=== PATIENT | female | born 1980 | race Caucasian/White ===

== ENCOUNTER 2016-09-13 12:11 | Emergency (ER) | payer BC ==
[2016-09-13] MEDS ORDERED: NS 0.9% 1000 ML* 1,000 ML IV ONE (12:31)
[2016-09-13 13:32] LABS: Hematocrit 36 % (35-47); Hemoglobin 11.7 g/dl (12.0-16.0); Mean Corpuscular HGB Conc 32 g/dl (31-36); Mean Corpuscular Hemoglobin 25 pg (27-31); Mean Corpuscular Volume 78 fL (80-97); Mean Platelet Volume 10 um3 (7.4-10.4); Red Blood Count 4.63 10^6/ul (4.0-5.4); Red Cell Distribution Width 15 % (10.5-15)
[2016-09-13 13:58] LABS: Albumin 3.3 g/dL (3.2-5.2); BUN/Creatinine Ratio 12.3 (8-20); Calcium 8.5 mg/dL (8.6-10.3); EGFR African American 153.5 (>60); EGFR Non-African American 119.3 (>60); Globulin 3.1 g/dL (2-4); Potassium 3.7 mmol/L (3.5-5.0); Total Bilirubin 0.2 mg/dL (0.2-1.0); Total Protein 6.4 g/dL (6.4-8.9)
--- NOTE | 2016-09-13 14:06 | ED ---
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 She agreed with plan to check these and then will f/u with pmd and ob. pt will follow up on her tsh - Diagnoses Provider Diagnoses: SVT (supraventricular tachycardia)
--- NOTE | 2016-09-13 14:06 | ED ---
Thaddeus Mc Alok, scribed for Kasey Madison MD on 09/13/16 at 1332 . Palpitations / Dysrhythmia - HPI Summary HPI Summary: 36F presents to the ED following an episode of tachycardia while at work. Pt states that she felt an elevated heart rate while at work at 1130 which lasted approximately 30 mins before calling her OB who recommended she be seen here. Pt states her tachycardia has subsided since arriving at the ED. PMHx includes h /o tachycardia on and off since the start of her her current . Pt denies vomiting or diarrhea. Pt has had one before. Pt takes magnesium but states she missed a dose 4-5 days ago. - History of Current Complaint Chief Complaint: EDDysrhythmPalp Time Seen by Provider: 09/13/16 13:14 Hx Obtained From: Patient Onset/Duration: Lasting Minutes, Resolved Timing: Intermittent Episodes Lasting: - 30 minutes Severity Initially: Moderate Severity Currently: Moderate Character: Fast Aggravating: Nothing Alleviating: Nothing - Allergy/Home Medications Allergies/Adverse Reactions: Allergies Allergy/AdvReac Type Severity Reaction Status Date / Time Prochlorperazine Allergy Agitation Verified 09/13/16 13:32 [From Compazine] PMH/Surg Hx/FS Hx/Imm Hx Endocrine/Hematology History: Denies: Hx Diabetes Cardiovascular History: Denies: Hx Hypertension Infectious Disease History: Denies: Traveled Outside the [place] in Last 30 Days - Family History Known Family History: Positive: Other - No - SVT - Social History Occupation: Employed Full-time Lives: With Family Review of Systems Negative: Fever Positive: Other - tachycardia Negative: Diarrhea, Nausea All Other Systems Reviewed And Are Negative: Yes Physical Exam Triage Information Reviewed: Yes Vital Signs On Initial Exam: Initial Vitals Temp Pulse Resp BP 97.5 F 120 18 108/81 09/13/16 12:15 09/13/16 12:15 09/13/16 12:15 09/13/16 12:15 Vital Signs Reviewed: Yes Appearance: Positive: Well-Appearing, No Pain Distress Skin: Positive: Warm, Skin Color Reflects Adequate Perfusion, Dry Eyes: Positive: EOMI, DILMA ENT: Positive: Pharynx normal, TMs normal Neck: Positive: Supple, Nontender Respiratory/Lung Sounds: Positive: Clear to Auscultation, Breath Sounds Present. Negative: Rales, Rhonchi, Wheezes Cardiovascular: Positive: RRR, Other - no gallop. Negative: Murmur, Rub Abdomen Description: Positive: Nontender, Soft, Other: - no gallop. Negative: Distended, Guarding Bowel Sounds: Positive: Present Musculoskeletal: Positive: Strength/ROM Intact. Negative: Edema Left, Edema Right Neurological: Positive: Sensory/Motor Intact, Alert, Oriented to Person Place, Time, CN Intact II-III Psychiatric: Positive: Affect/Mood Appropriate Diagnostics - Vital Signs Vital Signs Temp Pulse Resp BP 09/13/16 12:15 97.5 F 120 18 108/81 - Laboratory Lab Results: Lab Results 09/13/16 09/13/16 Range/Units 13:19 13:19 WBC 10.0 (3.5-10.8) 10^3/ul RBC 4.63 (4.0-5.4) 10^6/ul Hgb 11.7 L (12.0-16.0) g/dl Hct 36 (35-47) % MCV 78 L (80-97) fL MCH 25 L (27-31) pg MCHC 32 (31-36) g/dl RDW 15 (10.5-15) % Plt Count 143 L (150-450) 10^3/ul MPV 10 (7.4-10.4) um3 Neut % (Auto) 80.8 (38-83) % Lymph % (Auto) 10.9 L (25-47) % [place] % (Auto) 7.6 (1-9) % Eos % (Auto) 0.5 (0-6) % Baso % (Auto) 0.2 (0-2) % Absolute Neuts (auto) 8.1 H (1.5-7.7) 10^3/ul Absolute Lymphs (auto) 1.1 (1.0-4.8) 10^3/ul Absolute Monos (auto) 0.8 (0-0.8) 10^3/ul Absolute Eos (auto) 0.1 (0-0.6) 10^3/ul Absolute Basos (auto) 0 (0-0.2) 10^3/ul Absolute Nucleated RBC 0.01 10^3/ul Nucleated RBC % 0.1 Sodium 136 (133-145) mmol/L Potassium 3.7 (3.5-5.0) mmol/L Chloride 107 (101-111) mmol/L Carbon Dioxide 21 L (22-32) mmol/L Anion Gap 8 (2-11) mmol/L BUN 7 (6-24) mg/dL Creatinine 0.57 (0.51-0.95) mg/dL Est GFR ( Amer) 153.5 (>60) Est GFR (Non-Af Amer) 119.3 (>60) BUN/Creatinine Ratio 12.3 (8-20) Glucose 80 (70-100) mg/dL Calcium 8.5 L (8.6-10.3) mg/dL Magnesium 2.0 (1.9-2.7) mg/dL Total Bilirubin 0.20 (0.2-1.0) mg/dL AST 17 (13-39) U/L ALT 11 (7-52) U/L Alkaline Phosphatase 98 (34-104) U/L Total Creatine Kinase 66 (10-223) U/L Total Protein 6.4 (6.4-8.9) g/dL Albumin 3.3 (3.2-5.2) g/dL Globulin 3.1 (2-4) g/dL Albumin/Globulin Ratio 1.1 (1-3) TSH Pending Result Diagrams: 09/13/16 13:19 09/13/16 13:19 Lab Statement: Any lab studies that have been ordered have been reviewed, and results considered in the medical decision making process. 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 She agreed with plan to check these and then will f/u with pmd and ob. pt will follow up on her tsh - Diagnoses Provider Diagnoses: SVT (supraventricular tachycardia) Discharge - Discharge Plan Condition: Stable Disposition: HOME The documentation as recorded by the Thaddeus newell Alok accurately reflects the service I personally performed and the decisions made by me, Kasey Madison MD.
[2016-09-13 14:11] LABS: TSH (Thyroid Stimulating Horm) 1.51 mcIU/mL (0.34-5.60)
[2016-09-13 14:41] VITALS: BP 110/63
== END 2016-09-13 14:40 | disposition home or self-care (01) ==
LOC: ED 12:11
DX: O99.413 Diseases of the circulatory system complicating pregnancy, third trimester (principal); I47.1 Supraventricular tachycardia; Z3A.37 37 weeks gestation of pregnancy
CPT/HCPCS: 36415; 80053; 82550; 83735; 84443; 85025; 93005; 99282

== ENCOUNTER 2016-09-28 05:53 | Inpatient (IN) | payer BC ==
[2016-09-28] MEDS ORDERED: Sodium Citrate/Citric Acid* 15 ML UDC ONE (06:20)
[2016-09-28] MEDS ORDERED: ceFOXitin 2 GM IVPREMIX* 2 GM/50 ML BAG IVPB ONE (07:00)
[2016-09-28] MEDS ORDERED: Morphine PF AMP (0.5MG/ML)* 5 MG/10 ML AMP ONE (07:31)
[2016-09-28] MEDS ORDERED: Ondansetron INJ* 2 MG/ML VIAL ONE (07:32)
[2016-09-28] MEDS ORDERED: OXYTOCIN* 10 UNITS/ML 1 ML VIAL ONE (07:32)
[2016-09-28] MEDS ORDERED: Ketorolac INJ* 30 MG/ML 1 ML VIAL ONE (07:32)
[2016-09-28] MEDS ORDERED: Acetaminophen IV 1GM/100ML * 100 ML IVPB ONE (07:50)
[2016-09-28] MEDS ORDERED: HYDROmorphone* 1 MG/ML 1 ML SYR IV PRN (07:50)
[2016-09-28] MEDS ORDERED: DiMENhydriNATE IV* 50 MG/ML VIAL IV PUSH PRN (07:50)
[2016-09-28] MEDS ORDERED: oxyCODONE TAB* 5 MG TAB PO PRN (07:50)
[2016-09-28] MEDS ORDERED: EPHEDrine (Pressors)* 50 MG/ML VIAL ONE (08:48)
[2016-09-28] MEDS ORDERED: Phenylephrine IV* 40 MCG/ML 10 ML SYRINGE ONE (08:49)
[2016-09-28] MEDS ORDERED: Nalbuphine* 20 MG/ML 1 ML VIAL IV PRN (08:52)
[2016-09-28] MEDS ORDERED: Ondansetron INJ* 2 MG/ML VIAL IV PRN (08:52)
[2016-09-28] MEDS ORDERED: oxyCODONE/Acetamin 5/325 MG* TAB PO PRN (08:52)
[2016-09-28] MEDS ORDERED: Naloxone* 0.4 MG/ML 1 ML VIAL IV PRN (08:52)
[2016-09-28] MEDS ORDERED: Ibuprofen TAB* 600 MG PO SCH (09:00)
[2016-09-28] MEDS ORDERED: Dibucaine 1% 28.35 GM TUBE PR PRN (09:19)
[2016-09-28] MEDS ORDERED: Witch Hazel PAD* JAR TOPICAL PRN (09:19)
[2016-09-28] MEDS ORDERED: Zolpidem TAB* 5 MG PO PRN (09:19)
[2016-09-28] MEDS ORDERED: Glycerin ADULT SUPP PR PRN (09:19)
[2016-09-28] MEDS ORDERED: DiMENhydriNATE IV* 50 MG/ML VIAL IV PUSH ONE (12:18)
[2016-09-28] MEDS: Simethicone CHEW TAB* 80 MG PO SCH ×3 (14:01→21:09)
[2016-09-28] MEDS: Docusate CAP* 100 MG PO SCH ×2 (15:30→21:09)
[2016-09-28] MEDS: Ibuprofen TAB* 600 MG PO SCH ×2 (15:30→21:59)
[2016-09-28] MEDS: Acetaminophen TAB* 325 MG PO PRN (15:30)
[2016-09-29] MEDS: oxyCODONE/Acetamin 5/325 MG* TAB PO PRN ×5 (01:32→22:58)
[2016-09-29] MEDS: Ibuprofen TAB* 600 MG PO SCH ×2 (05:03→11:29)
[2016-09-29 06:08] LABS: Hematocrit 28 % (35-47); Hemoglobin 8.8 g/dl (12.0-16.0); Mean Corpuscular HGB Conc 32 g/dl (31-36); Mean Corpuscular Hemoglobin 25 pg (27-31); Mean Corpuscular Volume 79 fL (80-97); Mean Platelet Volume 10 um3 (7.4-10.4); Red Blood Count 3.53 10^6/ul (4.0-5.4); Red Cell Distribution Width 15 % (10.5-15); White Blood Count 8.8 10^3/ul (3.5-10.8)
[2016-09-29] MEDS: Ferrous Gluconate TAB* 324 MG TAB PO SCH ×2 (08:45→20:53)
[2016-09-29] MEDS: Docusate CAP* 100 MG PO SCH ×3 (08:45→20:51)
[2016-09-29] MEDS: Simethicone CHEW TAB* 80 MG PO SCH ×4 (08:45→20:51)
[2016-09-29] MEDS: Acetaminophen TAB* 325 MG PO PRN (08:54)
[2016-09-29] MEDS ORDERED: Sodium Phosphate ADULT ENEMA* 118 ml bottle PR ONE (20:00)
[2016-09-29] MEDS: Ibuprofen TAB* 600 MG PO PRN (20:51)
[2016-09-30] MEDS: Ibuprofen TAB* 600 MG PO PRN ×2 (05:58→13:06)
[2016-09-30] MEDS: oxyCODONE/Acetamin 5/325 MG* TAB PO PRN ×2 (06:13→13:05)
[2016-09-30 08:23] VITALS: BP 99/56
[2016-09-30] MEDS: Ferrous Gluconate TAB* 324 MG TAB PO SCH (09:28)
[2016-09-30] MEDS: Simethicone CHEW TAB* 80 MG PO SCH ×2 (09:28→13:06)
[2016-09-30] MEDS: Docusate CAP* 100 MG PO SCH ×2 (09:28→13:07)
== END 2016-09-30 13:52 | disposition home or self-care (01) | DRG 540 ==
LOC: MCHOB 05:53
PROVIDERS: ADMIT Obstetrics & Gynecology; ATTEND Obstetrics & Gynecology
PROC: 4A1HX4Z Monitoring of Products of Conception, Cardiac Electrical Activity, External Approach (ICD-10-PCS; 2016-09-28)
PROC: 0UL70ZZ Occlusion of Bilateral Fallopian Tubes, Open Approach (ICD-10-PCS; 2016-09-28)
PROC: 10D00Z1 Extraction of Products of Conception, Low, Open Approach (ICD-10-PCS; principal; 2016-09-28 07:45)
DX: O90.81 Anemia of the puerperium (principal); Z88.8 Allergy status to other drugs, medicaments and biological substances; Z3A.39 39 weeks gestation of pregnancy; Z37.0 Single live birth; Z30.2 Encounter for sterilization
CPT/HCPCS: 36415; 85025; 88302; A9270-GY; J0694; J1240; J1885; J2405; J2590